=== PATIENT | female | born 1965 | race Hispanic/Latino ===

== ENCOUNTER 2019-01-19 22:18 | Emergency (ER) | payer OTHER ==
[2019-01-19] MEDS ORDERED: ACETAMINOPHEN 325 MG TAB ONE (22:58)
== END 2019-01-20 00:06 | disposition home or self-care (01) ==
LOC: EDH 22:18
DX: S92.511A Displaced fracture of proximal phalanx of right lesser toe(s), initial encounter for closed fracture (principal); I10 Essential (primary) hypertension; W22.8XXA Striking against or struck by other objects, initial encounter; Y93.89 Activity, other specified; Y92.89 Other specified places as the place of occurrence of the external cause; Y99.8 Other external cause status
CPT/HCPCS: 73660

== ENCOUNTER 2022-06-28 08:38 | Emergency (ER) | payer OTHER ==
[~2022-06-28] VITALS: Ht 160 cm; Wt 83.5 kg
[2022-06-28 09:24] LABS: HEMATOCRIT 37.6 % (36-48); MEAN CORPUSCULAR HEMOGLOBIN 29.9 pg (27.0-33.0); MEAN CORPUSCULAR VOLUME 87.9 fL (79-99); RED BLOOD CELL COUNT(AUTO) 4.28 MIL/uL (4.00-5.50); RED CELL DISTRIBUTION WIDTH 12.7 % (11.0-15.5); WHITE BLOOD COUNT (AUTO) 7.2 K/uL (4.8-10.8)
[2022-06-28 09:25] LABS: APPEARANCE,URINE CLEAR (CLEAR); BILIRUBIN,URINE NEGATIVE (NEGATIVE); COLOR,URINE LIGHT-YELLOW (YELLOW); GLUCOSE, URINE (UA) NEGATIVE (NEGATIVE); KETONES,URINE NEGATIVE (NEGATIVE); LEUKOCYTE ESTERASE ,URINE 500 Leu/uL (NEGATIVE); NITRATE,URINE NEGATIVE (NEGATIVE); OCCULT BLOOD,URINE SMALL (NEGATIVE); PROTEIN,URINE NEGATIVE (NEGATIVE); UROBILINOGEN,URINE 0.2 mg/dL (0.2-1.0)
[2022-06-28 09:35] LABS: CREATININE 0.8 mg/dL (0.5-1.5); POTASSIUM 3.2 mmol/L (3.5-5.1)
[2022-06-28 09:39] LABS: BACTERIA,URINE FEW /HPF (None Seen); MUCUS,URINE RARE LPF (None Seen); SQUAMOUS EPITHELIAL CELL,UR FEW /HPF (0-2)
[2022-06-28 09:40] LABS: ALBUMIN 3.4 g/dL (3.5-5.0); TOTAL PROTEIN, SERUM 7.9 g/dL (6.0-8.3)
[2022-06-28] MEDS ORDERED: MACR100 PO (10:02)
[2022-06-28 10:03] VITALS: BP 158/86
[2022-06-28] MEDS ORDERED: POTASSIUM BICARB/CIT AC 25 MEQ TABLET.EFF ONE (10:10)
[2022-06-28] MEDS ORDERED: POTASSIUM BICARB/CIT AC 25 MEQ TABLET.EFF PO ONE (10:30)
== END 2022-06-28 10:38 | disposition home or self-care (01) ==
LOC: EDH 08:38
DX: R42 Dizziness and giddiness (principal); E87.6 Hypokalemia; N39.0 Urinary tract infection, site not specified; I10 Essential (primary) hypertension; E78.00 Pure hypercholesterolemia, unspecified; F17.200 Nicotine dependence, unspecified, uncomplicated
CPT/HCPCS: 36415; 80053; 81001; 84484; 85027; 87088; 93005

== ENCOUNTER 2024-07-19 07:23 | Emergency (ER) | payer BC ==
[~2024-07-19] VITALS: Ht 160 cm; Wt 83.0 kg
[~2024-07-19 07:23] MED LIST: MACR100 PO
[2024-07-19] MEDS: acetaMINOPHEN 325 MG TAB PO ONE (07:38)
--- NOTE | 2024-07-19 07:53 | ERN ---
General Chief Complaint: Sore Throat Stated Complaint: SORE THROAT Time Seen by MD: 07:25 History of Present Illness Initial Comments 58-year-old female, history of hypertension, presents for sore throat and a low- grade fever beginning less than 24 hours ago. No cough congestion vomiting diarrhea or other symptoms. Allergies: Coded Allergies: No Known Drug Allergies (Unverified Allergy, Unknown, 06/28/22) Home Meds Active Scripts Nitrofurantoin/Nitrofuran Mac (Macrobid) 100 Mg Cap, 1 CAP PO BID for 7 Days, #14 CAP 0 Refills Prov:AGNES JONES MD 06/28/22 Past Medical History Past Medical History: High Cholesterol, Hypertension Past Surgical History: None Family History Family History: Negative Social History Social History: Smokers, Lives with family ROS Dictation CONSTITUTIONAL: No chills, no fever, no weakness, no diaphoresis, no malaise. HEAD/FACE: No signs of trauma. EENT: Sore throat RESPIRATORY: No cough, no orthopnea, no SOB, no stridor, no wheezing. CARDIOVASCULAR: No chest pain, no edema, no palpitations, no syncope. GASTROINTESTINAL/ABDOMINAL: No abdominal pain, no constipation, no diarrhea, no nausea, no vomiting. GENITOURINARY: No abnormal discharge, no dysuria, no frequent urination, no hematuria. No complaints of pain in the genitals. MUSCULOSKELETAL: No back pain, no gout, no joint pain, no joint swelling, no muscle pain, no muscle stiffness, no neck pain. INTEGUMENTARY: No change in color, no change in hair/nails, no dryness, no lesion, no lumps, no rash. NEUROLOGICAL/PSYCH: No anxiety, not depressed, no emotional problem, no headache, no numbness, no pre-existing deficit, no history of seizures, no tremors, no weakness. HEMATOLOGIC/LYMPHATIC: Not anemic, no history of blood clots, no apparent bleeding, no bruising, glands not swollen. All Systems Negative, Except as Noted. Physical Exam Physical Exam Dictation VITAL SIGNS: Reviewed. GENERAL APPEARANCE: Alert, oriented x3, no acute distress, obese. HEAD AND FACE: Non-traumatic. EYES: PERRL, pink conjunctivas, eyelid no trauma, anterior chamber clear. EARS: Pinnas intact and no signs of trauma or erythema. Ear canals clear and no discharge. TMs no erythema. NOSE: No discharge, no bleeding. OROPHARYNX: Bilateral tonsillar enlargement, larger on the left, no exudates, erythematous. Cervical chain lymphadenopathy NECK: Supple, non-tender, no thyromegaly, no masses, no JVD, no bruits. BREAST: Deferred. CHEST: No tenderness, no crepitus, no paradoxical movement, no retractions. LUNGS: Clear, well-ventilated, symmetric, no rales, no wheezing, no rhonchi, no stridor, good breath sounds bilaterally. HEART: Regular rate, regular rhythm, no murmur, no gallops. VASCULAR: No peripheral edema. ABDOMEN: Soft, positive bowel sounds, nondistended, no guarding, nontender, no rebound, no masses no hepatomegaly, no splenomegaly, no Jackman's sign, no hernias. RECTAL: Deferred. GENITAL: Deferred. NEUROLOGICAL: Normal speech, gross motor function intact, gross sensory function intact. MUSCULOSKELETAL: Neck nontender, full range of motion, back nontender, full ran ge of motion. EXTREMITIES: Nontender, full range of motion. SKIN: Color pink, dry, no turgor, no rash, no lacerations, no abrasions, no contusions. LYMPHATICS: Deferred. Results Laboratory and Microbiology Lab and Micro Result Laboratory Tests Test 07/19/24 07:31 Influenza Type A Antigen Negative For Type A Influenza Type B Antigen Negative For Type B SARS-CoV-2 Antigen (Rapid) PRESUMPTIVE NEGATIVE Group A Streptococcus Rapid positive (NEGATIVE) *A MDM CC: Sore throat and fever Historian: Patient Comorbidities: Obesity, hypertension Limitations by social determinants of health: None Differential diagnosis: Viral versus bacterial pharyngitis, abscess, other. On clinical exam there is no signs of abscess. Swollen tonsils bilaterally with the erythema, no purulence or exudates, larger on the left. No signs of abscess. Able to swallow. She does have cervical chain lymphadenopathy on the left side. Clear lungs. Nontoxic in appearance. Vital signs: Febrile 100.6, otherwise vital signs stable. Treatment in ED: P.o. Tylenol, IM Toradol, IM dexamethasone FLU & COVID neg Strep +, consistent with symptoms Plan: will DC w/ Augmentin, tylenol & ibuprofen. PCP f/u. ED Course Orders Procedure Category Date Status Time Covid19 (Sars Antigen LAB 07/19/24 Complete Rapid) 07:29 Influenza Type A & B, LAB 07/19/24 Complete Rapid 07:29 Rapid (Group A Strep) LAB 07/19/24 Complete 07:29 Acetaminophen 325 Tab PHA 07/19/24 Complete (Tylenol 325mg Tab 07:30 Dexamethasone 4mg/Ml PHA 07/19/24 Complete 1ml Vial (Dexametha 08:00 Ketorolac PHA 07/19/24 Complete Tromethamine 15mg/Ml 08:00 Current Medications Medications (Trade) Dose Ordered Sig/Patrizia Route PRN Reason Start Time Stop Time Status Last Admin Dose Admin Acetaminophen (TYLenol 325MG TAB) 650 mg ONCE ONCE PO 07/19/24 07:30 07/19/24 07:35 DC 07/19/24 07:38 Dexamethasone Sodium Phosphate (dexaMETHasone 4MG/ML 1ML VIAL) 6 mg ONCE ONCE IM 07/19/24 08:00 07/19/24 08:01 DC 07/19/24 08:07 Ketorolac Tromethamine (toRADol) 15 mg ONCE ONCE IM 07/19/24 08:00 07/19/24 08:01 DC 07/19/24 08:07 Vital Signs Date Time Temp Pulse Resp B/P (MAP) Pulse Ox O2 Delivery O2 Flow Rate FiO2 07/19/24 07:26 100.6 81 16 140/83 96 Room Air* 0 21 07/19/24 07:24 100.6 87 16 140/83 96 Room Air 0 DX & DISP Disposition: Discharge Departure Impression: Primary Impression: Strep throat Condition: Stable Scripts Amoxicillin/Potassium Clav (Amox Tr-K Clv 875-125 mg Tab) 875 Mg-125 Mg Tablet 1 TAB PO BID for 10 Days, #20 TAB 0 Refills Prov: LYDIA RAI DO 07/19/24 Additional Instructions: You have strep throat. I have prescribed Augmentin, which is an antibiotic. Take as prescribed. Alternate Tylenol (1000 mg) and ibuprofen (800 mg) every 4-6 hours as needed for fever and pain. Be sure to drink plenty of cool liquids. Avoid acidic or spicy foods that may irritate the throat. Warm tea and Gatorade are good choices. Sooth of the throat with warm salt water gargles. You can also use throat lozenges. Be sure to wash you hands frequently. Avoid sharing food, drinks, and utensils. Did not return to work or school until you have been fever-free for a full 24 hours. Please return to the emergency department as needed. Referrals: ANTONIO SILVERMAN MD (PCP) LYDIA RAI DO Jul 19, 2024 07:53
[2024-07-19 08:06] LABS: COVID19 (SARS ANTIGEN RAPID) PRESUMPTIVE NEGATIVE (NEGATIVE); INFLUENZA TYPE A Negative For Type A (NEGATIVE); INFLUENZA TYPE B Negative For Type B (NEGATIVE)
[2024-07-19] MEDS: ketOROlac 15MG/ML VIAL (15MG/ML) IM ONE (08:07)
[2024-07-19] MEDS: dexaMETHasone SOD PHOSPHATE 4 MG/ML 1ML VIAL IM ONE (08:07)
[2024-07-19 08:19] LABS: RAPID GROUP A STREP positive (NEGATIVE)
[2024-07-19] MEDS ORDERED: AMOX1TAB16 PO (08:26)
[2024-07-19 08:38] VITALS: BP 137/74; PULSE 78; RESP 16; TEMP 99.1; O2SAT 99
[2024-07-19 08:39] VITALS: TEMP 99.1
== END 2024-07-19 08:41 | disposition home or self-care (01) ==
LOC: EDH 07:23
DX: J02.0 Streptococcal pharyngitis (principal); E66.9 Obesity, unspecified; E78.00 Pure hypercholesterolemia, unspecified; F17.200 Nicotine dependence, unspecified, uncomplicated; I10 Essential (primary) hypertension; Z20.822 Contact with and (suspected) exposure to COVID-19
CPT/HCPCS: 99284; 87426; 87880; 87804 ×2; 96372 ×2; J1100; J1885

== ENCOUNTER 2024-09-23 07:14 | Emergency (ER) | payer BC ==
[~2024-09-23] VITALS: Ht 160 cm; Wt 79.8 kg
[~2024-09-23 07:14] MED LIST changes: +AMOX1TAB16 PO
[2024-09-23] MEDS: acetaMINOPHEN/coDEINE 120/12MG 5ML PO STA (07:37)
--- NOTE | 2024-09-23 07:40 | NUR ---
PT REFUSED TYLENOL WITH CODEINE IT MAKES HER FEEL "UGLY". INFORMED
[2024-09-23] MEDS: acetaMINOPHEN 500 MG TABLET PO ONE (07:48)
--- NOTE | 2024-09-23 07:49 | ERN ---
General Chief Complaint: Sore Throat Stated Complaint: SORE THROAT Time Seen by MD: 07:15 Source: patient History of Present Illness Initial Comments Patient is a 58-year-old female coming in to be evaluated for sore throat. Patient states that she has been having a sore throat for a couple of days and thought her" tonsils were enlarged". Allergies: Coded Allergies: No Known Drug Allergies (Unverified Allergy, Unknown, 06/28/22) Home Meds Active Scripts Amoxicillin/Potassium Clav (Amox Tr-K Clv 875-125 mg Tab) 875 Mg-125 Mg Tablet, 1 TAB PO BID for 10 Days, #20 TAB 0 Refills Prov:LYDIA RAI DO 07/19/24 Nitrofurantoin/Nitrofuran Mac (Macrobid) 100 Mg Cap, 1 CAP PO BID for 7 Days, #14 CAP 0 Refills Prov:AGNES JONES MD 06/28/22 Past Medical History Past Medical History: High Cholesterol, Hypertension Past Surgical History: None Family History Family History: Negative Social History Social History: Smokers, Lives with family ROS Dictation CONSTITUTIONAL: No chills, no fever, no weakness, no diaphoresis, no malaise. HEAD/FACE: No signs of trauma. EENT: No eye pain, no blurred vision, no tearing, no double vision, no ear pain, no ear discharge, no nose pain, no nasal congestion, throat pain, no throat swelling, no mouth pain. RESPIRATORY: No cough, no orthopnea, no SOB, no stridor, no wheezing. CARDIOVASCULAR: No chest pain, no edema, no palpitations, no syncope. GASTROINTESTINAL/ABDOMINAL: No abdominal pain, no constipation, no diarrhea, no nausea, no vomiting. GENITOURINARY: No abnormal discharge, no dysuria, no frequent urination, no hematuria. No complaints of pain in the genitals. MUSCULOSKELETAL: No back pain, no gout, no joint pain, no joint swelling, no muscle pain, no muscle stiffness, no neck pain. INTEGUMENTARY: No change in color, no change in hair/nails, no dryness, no lesion, no lumps, no rash. NEUROLOGICAL/PSYCH: No anxiety, not depressed, no emotional problem, no headache, no numbness, no pre-existing deficit, no history of seizures, no tremors, no weakness. HEMATOLOGIC/LYMPHATIC: Not anemic, no history of blood clots, no apparent bleeding, no bruising, glands not swollen. All Systems Negative, Except as Noted. Physical Exam Physical Exam Dictation VITAL SIGNS: Reviewed. GENERAL APPEARANCE: Alert, oriented x3, no acute distress, obese. HEAD AND FACE: Non-traumatic. EYES: PERRL, pink conjunctivas, eyelid no trauma, anterior chamber clear. EARS: Pinnas intact and no signs of trauma or erythema. Ear canals clear and no discharge. TMs no erythema. NOSE: No discharge, no bleeding. OROPHARYNX: Mouth normal, teeth no caries, tongue pink. Pharynx erythema. Tonsils no exudates, no abscesses noted. Mucous membrane moist. NECK: Supple, non-tender, no thyromegaly, no masses, no JVD, no bruits. BREAST: Deferred. CHEST: No tenderness, no crepitus, no paradoxical movement, no retractions. LUNGS: Clear, well-ventilated, symmetric, no rales, no wheezing, no rhonchi, no stridor, good breath sounds bilaterally. HEART: Regular rate, regular rhythm, no murmur, no gallops. VASCULAR: No peripheral edema. ABDOMEN: Soft, positive bowel sounds, nondistended, no guarding, nontender, no rebound, no masses no hepatomegaly, no splenomegaly, no Jackman's sign, no hernias. RECTAL: Deferred. GENITAL: Deferred. NEUROLOGICAL: Normal speech, gross motor function intact, gross sensory function intact. MUSCULOSKELETAL: Neck nontender, full range of motion, back nontender, full range of motion. EXTREMITIES: Nontender, full range of motion. SKIN: Color pink, dry, no turgor, no rash, no lacerations, no abrasions, no contusions. LYMPHATICS: Deferred. Results Laboratory and Microbiology Lab and Micro Result Laboratory Tests Test 09/23/24 07:27 SARS-CoV-2, RNA, NAAT NEGATIVE SARS CoV-2 Group A Streptococcus Rapid positive (NEGATIVE) *A Labs Reviewed?: Yes MDM MDM: Differential diagnosis: Strep pharyngitis, tonsillitis, strep throat, Rationale: Tests considered and ordered secondary to shared decision making include: Previous outside records reviewed: Old ER visits. Risk of complication and/or morbidity or mortality of patient management: None Medications-Per medication reconciliation Patient is a 58-year-old female coming in to be evaluated for sore throat. On physical exam there is oropharyngeal erythema tonsils enlarged. Strep positive. Patient will be discharged in stable condition with a diagnosis of strep pharyngitis. ED Course Orders Procedure Category Date Status Time Rapid (Group A Strep) LAB 09/23/24 Complete 07:17 Covid Rna Naat LAB 09/23/24 Complete 07:17 Acetaminophen-Codeine PHA 09/23/24 Complete Elixer (Tylenol-Co 07:30 Acetaminophen 500mg PHA 09/23/24 Complete Tab (Tylenol 500mg T 08:00 Current Medications Medications (Trade) Dose Ordered Sig/Patrizia Route PRN Reason Start Time Stop Time Status Last Admin Dose Admin Acetaminophen (TYLenol 500MG TAB) 1,000 mg ONCE ONCE PO 09/23/24 08:00 09/23/24 08:01 09/23/24 07:48 Acetaminophen/ Codeine Phosphate (TYLenol-coDEINE (120/12MG 5ML) ELIXIR) 10 ml ONCE STAT PO 09/23/24 07:30 09/23/24 07:32 DC Vital Signs Date Time Temp Pulse Resp B/P (MAP) Pulse Ox O2 Delivery O2 Flow Rate FiO2 09/23/24 07:30 97.9 55 16 157/89 98 Room Air* 0 21 09/23/24 07:15 97.9 55 16 157/87 98 Room Air DX & DISP Disposition: Discharge Departure Impression: Primary Impression: Strep throat Condition: Stable Scripts Amoxicillin (Amoxicillin) 500 Mg Capsule 1 CAP PO TID for 10 Days, #30 CAP 0 Refills Prov: CINTHYA CHAUDHARY MD 09/23/24 Additional Instructions: FOLLOW-UP WITH PRIMARY CARE PROVIDER IN 1 TO 2 DAYS. TAKE MEDICATIONS DIRECTED HERE IN THE EMERGENCY ROOM. OKAY TO CONTINUE HOME MEDICATIONS UNLESS OTHERWISE DISCUSSED DURING YOUR VISIT IN THE EMERGENCY ROOM TODAY. RETURN TO YOUR NEAREST EMERGENCY ROOM IF SYMPTOMS WORSEN OR IF THERE IS NO IMPROVEMENT. CALL 911 IF YOU NEED IMMEDIATE ASSISTANCE. TAKE TYLENOL [id number] NEEDED AND IF NO CONTRAINDICATIONS ARE PRESENT. INCREASE ORAL HYDRATION. A WOUND CULTURE OR URINE CULTURE WAS ORDERED HERE IN THE EMERGENCY ROOM DEPARTMENT PLEASE FOLLOW-UP WITH PRIMARY CARE PROVIDER AND ADVISE THEM TO GET REPEAT PORTS FROM OUR FACILITY. IF YOU HAD ANY TRES WRAP/SPLINTS THAT WERE APPLIED HERE, PLEASE DO NOT REMOVE THEM UNTIL YOU SEE YOUR PRIMARY CARE OR SPECIALTY. Referrals: Referrals: ANTONIO SILVERMAN MD (PCP) Time of Disposition: 08:02 CINTHYA CHAUDHARY MD September 23, 2024 07:49
[2024-09-23 07:52] LABS: SARS-CoV-2, RNA, NAAT NEGATIVE SARS CoV-2 (NEGATIVE)
[2024-09-23 07:55] LABS: RAPID GROUP A STREP positive (NEGATIVE)
[2024-09-23] MEDS ORDERED: AMOX500C2 PO (08:03)
[2024-09-23 08:10] VITALS: BP 120/62; PULSE 48; RESP 16; TEMP 97.8; O2SAT 97
== END 2024-09-23 08:32 | disposition home or self-care (01) ==
LOC: EDH 07:14
DX: J02.0 Streptococcal pharyngitis (principal); E78.00 Pure hypercholesterolemia, unspecified; F17.200 Nicotine dependence, unspecified, uncomplicated; I10 Essential (primary) hypertension; Z20.822 Contact with and (suspected) exposure to COVID-19; Z79.899 Other long term (current) drug therapy
CPT/HCPCS: 87635; 87880; 99283